=== PATIENT | male | born 1985 | race Caucasian/White ===

== ENCOUNTER 2016-10-19 01:55 | Emergency (ER) | payer OTHER ==
[~2016-10-19] VITALS: Ht 177.8 cm; Wt 145.1 kg
[~2016-10-19 01:55] MED LIST: ADDERALL5 MG PO; AMBIEN10 M1 PO; ATIVAN0.5 MG PO; XANAX1 MG PO
== END 2016-10-19 06:36 | disposition expired ==
LOC: ED 01:55
DX: I46.9 Cardiac arrest, cause unspecified (principal); I10 Essential (primary) hypertension; Z87.891 Personal history of nicotine dependence